=== PATIENT | female | born 1955 | race Caucasian/White ===

== ENCOUNTER 2016-11-26 10:21 | Observation (INO) | payer BC ==
[~2016-11-26] VITALS: Ht 157.5 cm; Wt 81.6 kg
[2016-11-26 11:09] LABS: BASOPHILS 0.3 % (0-2); EOSINOPHILS 0.3 % (0-7); HEMATOCRIT 45.3 % (36.0-48.0); HEMOGLOBIN 15.1 g/dL (12-16); IMMATURE GRANULOCYTES 0.4 % (0-5); LYMPHOCYTES 11.6 % (15-50); MCH 30.4 pg (26.0-34.0); MCHC 33.3 g/dL (31.0-37.0); MCV 91.1 fL (80.0-100.0); MEAN PLATELET VOLUME 9.6 fL (7.4-10.4); MONOCYTES 4.4 % (2-11); PLATELET COUNT 281 10x3/uL (130-400); RBC 4.97 10x6/uL (4.00-5.40); RDW 12.7 % (11.5-14.5); WBC 14.4 10x3/uL (4.8-10.8)
[2016-11-26 11:25] LABS: ALBUMIN 3.4 g/dL (3.4-5.0); ANION GAP 15.1 mmol/L (8-16); BILIRUBIN - DIRECT 0.07 mg/dL (0.00-0.30); BILIRUBIN - INDIRECT 0.2 mg/dL (0.00-1.00); BILIRUBIN - TOTAL 0.27 mg/dL (0.2-1.3); CALCIUM 9.4 mg/dL (8.5-10.1); CARBON DIOXIDE 22.1 mmol/L (21.0-32.0); CREATININE - SERUM 1.5 mg/dL (0.6-1.3); POTASSIUM - SERUM 4.2 mmol/L (3.5-5.1)
[2016-11-26 13:20] VITALS: BP 158/85
[2016-11-26 16:40] VITALS: BP 170/85
[2016-11-26 18:35] VITALS: BP 158/85; BMI 33.0
--- NOTE | 2016-11-26 18:45 | NUR ---
PATIENT IN BED AT THIS TIME WITH IV INTACT. COMPLAINTS OF PAIN. AWAITING CT. MEDS GIVEN FOR PAIN. CALL LIGHT WITHIN REACH.
[2016-11-26] MEDS ORDERED: AMBIEN CR 6.26.25 MG (19:58)
[2016-11-26] MEDS ORDERED: SKELAXIN800 MG PO (19:58)
[2016-11-26] MEDS ORDERED: FARXIGA10 MG PO (19:59)
[2016-11-26] MEDS ORDERED: LYRICA50 MG PO ×2 (20:00→20:01)
[2016-11-26] MEDS ORDERED: PROMETRIUM200 MG PO (20:02)
[2016-11-26] MEDS ORDERED: TENORMIN50 MG PO (20:03)
[2016-11-26] MEDS ORDERED: ISOSORBIDE MONO30 M1 PO (20:03)
[2016-11-26] MEDS ORDERED: ESTRACE1 MG PO (20:03)
--- NOTE | 2016-11-26 21:11 | NUR ---
ALERT ORIENTED X 3. NO COMPLAINTS VOICED. IV INFUSING TO LEFT FOREARM WITHOUT REDNESS OR EDEMA NOTED. CL IN REACH. AT BEDSIDE
--- NOTE | 2016-11-26 23:31 | NUR ---
RN NOTE: PT RESTING ON RIGHT SIDE TALKING ON THE PHONE. IV IN LEFT FA PATENT WITH NS INFUSING AT 75 ML / HR. NO NEEDS VOICED. WILL CONTINUE TO MONITOR FOR CLOSLEY. CALL LIGHT WITHIN REACH.
[2016-11-27 04:00] VITALS: BP 123/57
[2016-11-27 06:00] LABS: BASOPHILS 0.3 % (0-2); EOSINOPHILS 0.5 % (0-7); HEMATOCRIT 42.6 % (36.0-48.0); HEMOGLOBIN 14.2 g/dL (12-16); IMMATURE GRANULOCYTES 0.4 % (0-5); LYMPHOCYTES 18.9 % (15-50); MCH 30.2 pg (26.0-34.0); MCHC 33.3 g/dL (31.0-37.0); MCV 90.6 fL (80.0-100.0); MEAN PLATELET VOLUME 9.5 fL (7.4-10.4); MONOCYTES 9.8 % (2-11); NEUTROPHILS 70.1 % (40-80); PLATELET COUNT 290 10x3/uL (130-400); RDW 12.7 % (11.5-14.5)
[2016-11-27 06:18] LABS: ALBUMIN 2.9 g/dL (3.4-5.0); ANION GAP 13.4 mmol/L (8-16); BILIRUBIN - TOTAL 0.44 mg/dL (0.2-1.3); CALCIUM 8.5 mg/dL (8.5-10.1); CARBON DIOXIDE 24.7 mmol/L (21.0-32.0); CREATININE - SERUM 1.4 mg/dL (0.6-1.3); POTASSIUM - SERUM 4.1 mmol/L (3.5-5.1); PROTEIN - SERUM 6.7 g/dL (6.4-8.2)
--- NOTE | 2016-11-27 07:00 | NUR ---
REPORT RECIEVED ASSUMED CARE. PATIENT IN BED WITH IV INTACT. NO COMPLAINTS AT THIS TIME. CALL LIGHT WITHIN REACH.
[2016-11-27 08:44] VITALS: BP 128/84
[2016-11-27 10:56] VITALS: Ht 157.5 cm; Wt 81.6 kg
[2016-11-27 12:40] VITALS: BP 144/70
--- NOTE | 2016-11-27 16:34 | NUR ---
1626: UNABLE TO REACH FAMILY EXT [id number] X2, 2525, [id number]
[2016-11-27 17:53] VITALS: BP 122/60
--- NOTE | 2016-11-27 18:55 | NUR ---
PATIENT IN BED WITH EYES CLOSED RESTING QUIETLY. IV INTACT. VS STABLE. NO COMPLAINTS. BANDAIDS TO ABDOMEN CLEAN AND DRY. NO PROBLEMS AT THIS TIME. CALL LIGHT WITHIN REACH.
[2016-11-27 19:00] VITALS: BP 111/66
--- NOTE | 2016-11-27 19:30 | NUR ---
PT SITTING UP IN BED TALKING WITH SPOUSE, ASSESSMENT COMPLETED, BANDAIDS TO LAP SITES IN PLACE, NO ACUTE DISTRESS NOTED, DENIES NEEDS AT THIS TIME, SR'S UP, CL IN REACH, WILL CONTINUE TO MONITOR
--- NOTE | 2016-11-27 21:00 | NUR ---
MEDS GIVEN PER MAR, CONNOR WELL, FALL PRECAUTIONS IN PLACE, S/O IN ROOM, CL IN REACH
--- NOTE | 2016-11-27 23:08 | NUR ---
RESTING WITH EYES CLOSED, RESP WITH EASE, NO DISTRESS NOTED, SR'S UP, CL IN REACH, SPOUSE RESTING IN RECLINER
[2016-11-28 04:00] VITALS: BP 107/53
[2016-11-28 06:12] LABS: BASOPHILS 0.1 % (0-2); EOSINOPHILS 0.1 % (0-7); HEMATOCRIT 41.9 % (36.0-48.0); HEMOGLOBIN 13.8 g/dL (12-16); IMMATURE GRANULOCYTES 0.3 % (0-5); LYMPHOCYTES 11.4 % (15-50); MCH 30.2 pg (26.0-34.0); MCHC 32.9 g/dL (31.0-37.0); MCV 91.7 fL (80.0-100.0); MEAN PLATELET VOLUME 9.4 fL (7.4-10.4); MONOCYTES 7.8 % (2-11); NEUTROPHILS 80.3 % (40-80); PLATELET COUNT 246 10x3/uL (130-400); RBC 4.57 10x6/uL (4.00-5.40); RDW 12.9 % (11.5-14.5); WBC 13.4 10x3/uL (4.8-10.8)
[2016-11-28 06:44] LABS: ALBUMIN 2.9 g/dL (3.4-5.0); ANION GAP 16.7 mmol/L (8-16); BILIRUBIN - TOTAL 0.4 mg/dL (0.2-1.3); CALCIUM 8.3 mg/dL (8.5-10.1); CARBON DIOXIDE 20.5 mmol/L (21.0-32.0); CREATININE - SERUM 1.4 mg/dL (0.6-1.3); POTASSIUM - SERUM 4.2 mmol/L (3.5-5.1); PROTEIN - SERUM 6.2 g/dL (6.4-8.2)
[2016-11-28 08:18] VITALS: BP 121/73
[2016-11-28] MEDS ORDERED: DILAUDID2 MG PO (12:23)
[2016-11-28 12:24] VITALS: BP 121/74
[2016-11-28] MEDS ORDERED: ARMOUR THYROID30 MG PO (12:33)
--- NOTE | 2016-11-28 13:50 | NUR ---
DISCHARGE INSTRUCTIONS COMPLETED WITH PATIENT AND HER . BOTH VERBALIZED UNDERSTANDING AND DENY QUESTIONS.
--- NOTE | 2016-11-28 13:50 | NUR ---
D/C BOTH IV'S WITH CATHETERS INTACT.
--- NOTE | 2016-11-28 14:30 | NUR ---
PATIENT LEFT VIA WHEELCHAIR
== END 2016-11-28 14:15 | disposition home or self-care (01) ==
LOC: OBSVTIME 10:21 → D.MS 10:21
PROVIDERS: Emergency Medicine; ADMIT Family Medicine
DX: K80.00 Calculus of gallbladder with acute cholecystitis without obstruction (principal); G47.33 Obstructive sleep apnea (adult) (pediatric); K21.9 Gastro-esophageal reflux disease without esophagitis; K58.9 Irritable bowel syndrome, unspecified; E11.9 Type 2 diabetes mellitus without complications; I10 Essential (primary) hypertension; J45.909 Unspecified asthma, uncomplicated; I25.10 Atherosclerotic heart disease of native coronary artery without angina pectoris; E78.5 Hyperlipidemia, unspecified; E03.9 Hypothyroidism, unspecified